=== PATIENT | female | born 1960 | race Caucasian/White ===

== ENCOUNTER 2024-02-15 09:00 | Outpatient (RCR) | payer OTHER, SELFPAY ==
[2024-02-03 10:54] VITALS: BP 147/66; PULSE 91; RESP 18; TEMP 37.3; BMI 33.3
--- NOTE | 2024-02-03 13:03 | HP.PCM_ITS ---
History of Present Illness Date of Service: 02/03/24 Chief Complaint: Follow-up right aguilar wound since October. 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 She has been treated by her family doctor who finally after 2 rounds of antibiotics and not getting anywhere decided to send her to the wound center. 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 PFSH Home Medications ?Medication ?Instructions ?Recorded ?Last Taken ?Type albuterol sulfate 90 mcg/actuation 2 inh inhalation Q4H PRN shortness 02/03/24 Unknown History aerosol inhaler of breath or wheezing calcium phosphate,dibasic 77 tab PO 02/03/24 Unknown History mg-vitamin D3 400 unit tablet fluocinolone acetonide oil 0.01 % 2 drp otic (ear) BID 02/03/24 Unknown History ear drops fluticasone fur. 100 mcg-umeclid inhalation DAILY 02/03/24 Unknown History 62.5 mcg-vilant 25 mcg inhalat.powder (Trelegy Ellipta) hydrochlorothiazide 12.5 mg tablet 12.5 mg PO DAILY 02/03/24 Unknown History magnesium 200 mg tablet 200 mg PO DAILY 02/03/24 Unknown History multivitamin (Daily Value tablet) 1 tab PO DAILY 02/03/24 Unknown History omeprazole 20 mg capsule,delayed 20 mg PO DAILY 02/03/24 Unknown History release pantoprazole 20 mg tablet,delayed 20 mg PO DAILY 02/03/24 Unknown History release Allergy/AdvReac Type Severity Reaction Status Date / Time cephalexin Allergy Mild Hives Verified 02/03/24 10:49 naproxen Allergy Mild Hives Verified 02/03/24 10:47 Penicillins Allergy Mild Itching Verified 02/03/24 10:36 loratadine (From Claritin-D) Allergy Itching Verified 02/03/24 10:47 pseudoephedrine (From Allergy Itching Verified 02/03/24 10:47 Claritin-D) Social History Smoking Status: Heavy Smoker (>10/day) ROS Constitutional Constitutional: Reports systems reviewed and no addt'l complaints, except as documented Eyes Eyes: Reports systems reviewed and no addt'l complaints, except as documented ENT HEENT: Reports systems reviewed and no addt'l complaints, except as documented Cardiovascular Cardiovascular: Reports systems reviewed and no addt'l complaints, except as documented Respiratory/Chest Respiratory/Chest: Reports systems reviewed and no addt'l complaints, except as documented Gastrointestinal Gastrointestinal: Reports systems reviewed and no addt'l complaints, except as documented Genitourinary Genitourinary: Reports systems reviewed and no addt'l complaints, except as documented Musculoskeletal Musculoskeletal: Reports systems reviewed and no addt'l complaints, except as documented Integumentary Integumentary: Reports wounds and other Details: Open wound hardened fibrin over top on the right aguilar. Neurologic Neurologic: Reports systems reviewed and no addt'l complaints, except as documented Psychiatric Psychiatric: Reports systems reviewed and no addt'l complaints, except as documented Endocrine Endocrinology: Reports systems reviewed and no addt'l complaints, except as documented Hematologic/Lymphatic Hematologic/Lymphatic: Reports systems reviewed and no addt'l complaints, except as documented Allergic/Immunologic Allergic/Immunologic: Reports systems reviewed and no addt'l complaints, except as documented Vital Signs Vital Signs Vital Signs: 02/03/24 10:54 Temperature 99.1 F Temperature Source Temporal Pulse Rate 91 Respiratory Rate 18 Blood Pressure 147/66 H Blood Pressure Mean 93 Blood Pressure Source Monitor Blood Pressure Position Semi-Fowlers Blood Pressure Location Left Arm Weight Weight: 182 lb Body Mass Index (BMI) 33.3 Physical Exam Const oriented x3 General Appearance: cooperative Exam Limitations: no limitations HEENT normocephalic Eyes General Eye: normal appearance of both eyes Neck General: normal visual inspection Resp normal respiratory effort Effort and Inspection: able to speak in complete sentences Cardio regular rate and regular rhythm Back/Spine Cervical Spine: cervical ROM normal Extremity General Extremity: normal exam except as noted, edema and other findings Other Details: Some varicosities superficial Skin Skin Narrative: Open wound right aguilar well-demarcated with no erythema except around the perimeter no tenderness to touch. About the size of a $0.50 piece with some positive depth Neuro oriented x3 Psych Appearance: grossly normal Speech: normal speech Thought Content: normal thought content Judgement: judgement good Debridement Note Debridement Note Wound debrided: Right aguilar trauma Type of Debridement: Excisional debridement Anesthesia Used: 5% Lidocaine Gel Depth: Down to and including healthy tissue and in the subcutaneous layer Percentage of wound debrided: 100 Instrument Used: 7mm curette, #15 blade and Forceps Tissue Removed: Fibrin and devitalized tissue Severity: Fat Layer Exposed Amount of bleeding with debridement: Mild Bleeding Controlled with: Compression and gauze Patient tolerated procedure: Patient tolerated procedure well Post-Debridement Measurements and Additional Note: Post-Debridement Measurements/Treatment - Nurse 1 - General Ulcer Assessment Start: 02/03/24 10:36 Freq: Status: Active Protocol: HERMINIO Activity Type Activity Date Activity User E-sign Co-sign Detail Recorded Client Recorded Date Recorded By Document 02/03/24 10:54 [id number] 02/03/24 11:05 02/03/24 10:54 - Today's Visit Information Type of service Initial Visit Arrival Mode Ambulatory Transfer Assistance None Patient Identification Verified (Name & Yes ) Height and Weight Height 5 ft 2 in Weight 182 lb Weight in Pounds 182.0 lbs Body Mass Index (BMI) 33.3 BMI Classification Obese BSA - [place] 1.84 Vital Signs Temperature (97.8 F-99.1 F) 99.1 F Temperature Source Temporal Pulse Rate (60-100) 91 Pulse Location Monitor Respiratory Rate (12-18) 18 Respiratory rate source Observation Blood Pressure (90/60-120/80) 147/66 H Blood Pressure Mean 93 Source Monitor Position Semi-Fowlers Blood Pressure Location Left Arm History Since Last Visit- (Skip if this is Patient's initial visit) Have you changed medications since your No last visit? Any new allergies or adverse reactions No Had a fall/change in ADL's that may No increase risk of falls Signs or symptoms of abuse and/or No neglect since last visit Have you been in the hospital since your No last visit? Has dressing in place as prescribed Yes Has compression in place as prescribed No Has offloadiing in place as prescribed No Experienced any changes in pain level or No management Pain Scale: 0-10 Numeric Is Patient Pain Free? No RLE -Description Burning -Intensity 8 -Duration (hours) Acute -Pain Behavior Irritability -Pain Aggravating Factors Exercise/ Activity -Alleviating Factors/Interventions None Lower Extremity Assessment/ Foot Assessment/ Toe Nail Assessment Right -Posterior Tibial Palpable Yes -Dorsalis Pedis Palpable Yes -Extremity Color Normal -Hair Growth on Legs Yes -Hair Growth on Toes No -Temperature of Extremity Warm -Capillary Refill Less than 3 Seconds -Dependent Rubor No -Blanched when Elevated No -Lipodermatosclerosis No -Other Deformity No -Prior Foot Ulcer No -Charcot Joint No -Prior Amputation No -Thick No -Discolored No -Deformed No -Improper Length & Hygeine Yes Left -Posterior Tibial Palpable Yes -Dorsalis Pedis Palpable Yes -Extremity Color Normal -Hair Growth on Legs Yes -Hair Growth on Toes No -Temperature of Extremity Warm -Capillary Refill Less than 3 Seconds -Dependent Rubor No -Blanched when Elevated No -Lipodermatosclerosis No -Other Deformity No -Prior Foot Ulcer No -Charcot Joint No -Prior Amputation No -Thick No -Discolored No -Deformed No -Improper Length & Hygeine Yes Neuropathy Assessment Feet - Top Side and Bottom <Entered> (a) Communication Assessment Preferred language Nauruan Roof Service Technician Required No Able to Read Yes Able to Write Yes Communication Tools None Caregiver Communication Skills Unable To Read Impairment Right Hearing Abillity Normal Left Hearing Abillity Normal Visual Assistive Devices Glasses Teaching Assessment Preferences Verbal,Written, Demonstration Barriers to Learning None Readiness To Learn Good Willingness to Engage in Self Management Med Activies Readiness to Engage in Self Management Med Activities Anxiety Level Calm Cooperation Cooperative Perception Coherent Interest in Health Problem Asks Questions Education Importance Acknowledges Need Does Patient Smoke tobacco or other Yes substances Smoking Status Heavy Smoker (> 10/day) Is Patient Diabetic No Functional Assessment Recent Decline in Ability to Perform Denies Any Declines Assistive Device With Patient No Culture/Church/Forestry Adviser Cultural/Church Needs that may affect No Treatment Plan Would you allow our hospital sales representative door to door to No meet you for the purpose of spiritual/ emotional support? Forestry Adviser to contact place of mormonism No Teaching: Wound Center *Welcome to the Wound Center -Person Taught Patient -Teaching Method Discussion, Demonstration -Response to teaching Verbalize Understanding (a) 1 - + THROUGHOUT WC - Nurse 1 - General Ulcer Measurement Start: 02/03/24 10:36 Freq: Status: Active Protocol: Activity Type Activity Date Activity User E-sign Co-sign Detail Recorded Client Recorded Date Recorded By Document 02/03/24 10:54 RB [id number] 02/03/24 11:05 02/03/24 10:54 Wound Center Nurse 1 1. RLE -Combined with other wound No -Current Size (cm) - Length 2.5 -Current Size (cm) - Width 3 -Current Size (cm) - Depth 0.1 -Total Square Cm 7.5 -Photo Taken Yes -Tunneling No -Undermining/Tunneling No -Circular Undermining No -Exudate Amt Medium -Exudate Type Serosanguineous -Wound Margin Distinct, Outline Attached -Granulation Amt Medium (34-66%) -Granulation Quality [place] -Slough/Fibrin Yes -Necrosis Amt Medium (34-66%) -Necrotic Tissue Type Eschar -Structure Exposed N/A -Texture (Dot-wound Skin Appearance) Assessed -Moisture (Dot-wound Skin Appearance) Assessed -Color (Dot-wound Skin Appearance) Assessed -Temperature (Dot-wound Skin No Abnormality Appearance) (Pt Warm) -Tenderness on Palpation (Dot-wound No Skin Appearance) -Ulcer Cleansing Wound Cleanser -Foul Odor after Cleansing No -Anesthetic Used 5% Lidocaine Gel Lower Limb Edema Present Yes Right Calf (cm) 45.5 Right Ankle (cm) 25.5 Left Calf (cm) 40 Left Ankle (cm) 23.8 - Nurse 2 - General Ulcer CM Notes Start: 02/03/24 10:36 Freq: Status: Active Protocol: Activity Type Activity Date Activity User E-sign Co-sign Detail Recorded Client Recorded Date Recorded By Document 02/03/24 11:21 [facility] [id number] 02/03/24 11:35 [facility] 02/03/24 11:21 Wound Center Nurse 2 1. RLE -Time 11:23 -Correct Patient Yes -Correct Side, Site, Position Yes -Correct Procedure Yes -Procedure Performed Yes -Type of Procedure Debridement -Clinical Debridement Subcutaneous -Tissue Removed Subcutaneous -Post Debridement (cm) - Length 2.5 -Post Debridement (cm) - Width 3 -Post Debridement (cm) - Depth 0.3 -Total Square (Post) (cm) 7.5 -Area of Debridement (cm) - Length 2.5 -Area of Debridement (cm) - Width 3 -Total Square (Area) (cm) 7.5 -Tunneling No -Undermining/Tunneling No -Circular Undermining No -Wound/Ulcer Outcome Not Healed -Ulcer Cleansing Rinsed/ Irrigated with Saline -Foul Odor after Cleansing No -Bioengineered Tissue No -Bleeding Controlled with Pressure -Treatment Response Procedure Tolerated Well -Debridement - Subq, 1st 20sq cm Yes Pain Scale: 0-10 Numeric Is Patient Pain Free? Yes - Nurse 3 - General Ulcer D/C NN Start: 02/03/24 10:36 Freq: Status: Active Protocol: Activity Type Activity Date Activity User E-sign Co-sign Detail Recorded Client Recorded Date Recorded By Document 02/03/24 11:57 DL [id number] 02/03/24 11:59 DL 02/03/24 11:57 Wound Care Center Nurse 3 1. RLE -Ulcer Cleansing Rinsed/ Irrigated with Saline -Foul Odor after Cleansing No -Other Dressing HYDROGEL -Primary Dressing Covered/Secured with Dry Gauze & Roll Gauze, Secured with Tape -Wound Comment(s) Pt to start Santyl when available at home Treatment Response Procedure Tolerated Well Pain Scale: 0-10 Numeric Is Patient Pain Free? Yes WC - Visit Discharge Discharge Condition Stable Ambulatory Status Ambulatory Transportation Private Auto Assessment/Plan Assessment/Plan (1) Nonhealing nonsurgical wound: CODE(S): T14.8XXA - Other injury of unspecified body region, initial encounter PLAN: Wash right leg with antibacterial soap and water apply Santyl nickel thickness to the wound base cover with Adaptic and gauze with tape every day Follow-up in 1 week Double layer Tubigrip to right lower leg Patient will get a vascular studies vein and arterial wound protocol Cultures will be called and results will be sent to patient. (2) Traumatic open wound of right lower leg: CODE(S): S81.801A - Unspecified open wound, right lower leg, initial encounter QUALIFIERS: Encounter type: initial encounter Qualified Code(s): S81.801A - Unspecified open wound, right lower leg, initial encounter (3) Dakota-Danlos syndrome: CODE(S): Q79.60 - Dakota-Danlos syndrome, unspecified
--- NOTE | 2024-02-04 08:52 | WC ---
PHOTO 02/03/24 [email or web address]
[2024-02-10 11:00] VITALS: BP 155/81; PULSE 91; RESP 18; TEMP 36.1; BMI 33.3
--- NOTE | 2024-02-10 12:52 | PN.PCM_ITS ---
History of Present Illness Date of Service: 02/10/24 Chief Complaint: Follow-up right aguilar wound since October. 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 She has been treated by her family doctor who finally after 2 rounds of antibiotics and not getting anywhere decided to send her to the wound center. 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 Progress of Wound: right right aguilar open wound looks much better with the Santyl cleaned it all out there is no debridement of slough have to be really done I am taking off some fibrin and around the edging it is well-demarcated she is already getting new skin across and she is got beads of new skin erupting. Subjective Subjective Patient is very happy with the outcome Objective Data Objective Data Measurements are not that much smaller but the depth is much better Vital Signs: Vital Signs Temp Pulse Resp BP 97 F L 91 18 155/81 H 02/10/24 11:00 02/10/24 11:00 02/10/24 11:00 02/10/24 11:00 Weight: 182 lb Body Mass Index (BMI) 33.3 Lab / Micro Data Attestation: I reviewed the patient's lab results. Micro: Microbiology 02/03/24 11:25 Wound - Leg, Right Gram Stain - Final 02/03/24 11:25 Wound - Leg, Right Wound Culture - Final No growth aerobically. 02/03/24 11:25 Wound - Leg, Right Anaerobic Culture - Final Clostridium group Physical Exam Const oriented x3 General Appearance: cooperative Exam Limitations: no limitations HEENT normocephalic Eyes General Eye: normal appearance of both eyes Neck General: normal visual inspection Resp normal respiratory effort Effort and Inspection: able to speak in complete sentences Cardio regular rate and regular rhythm Back/Spine Cervical Spine: cervical ROM normal Extremity General Extremity: normal exam except as noted, edema and other findings Other Details: Some varicosities superficial Skin Skin Narrative: Open wound right aguilar well-demarcated with no erythema except around the perimeter no tenderness to touch. About the size of a $0.50 piece with some positive depth Neuro oriented x3 Psych Appearance: grossly normal Speech: normal speech Thought Content: normal thought content Judgement: judgement good Debridement Note Debridement Note Wound debrided: Right aguilar trauma Type of Debridement: Excisional debridement Anesthesia Used: 5% Lidocaine Gel Depth: Down to and including healthy tissue and in the subcutaneous layer Percentage of wound debrided: 100 Instrument Used: 7mm curette, #15 blade and Forceps Tissue Removed: Fibrin and devitalized tissue Severity: Fat Layer Exposed Amount of bleeding with debridement: Mild Bleeding Controlled with: Compression and gauze Patient tolerated procedure: Patient tolerated procedure well Post-Debridement Measurements and Additional Note: Post-Debridement Measurements/Treatment WC - Nurse 1 - General Ulcer Assessment Start: 02/03/24 10:36 Freq: Status: Active Protocol: HERMINIO Activity Type Activity Date Activity User E-sign Co-sign Detail Recorded Client Recorded Date Recorded By Document 02/03/24 10:54 RB [id number] 02/03/24 11:05 RB Document 02/10/24 11:00 DL [id number] 02/10/24 11:03 DL 02/03/24 02/10/24 10:54 11:00 - Today's Visit Information Type of service Initial Visit Follow-up Visit (Physician/MORTGAGE ASSISTANT ) Arrival Mode Ambulatory Ambulatory Transfer Assistance None None Patient Identification Verified (Name & Yes Yes ) Patient Requires Transmission-Based No Precautions Height and Weight Height 5 ft 2 in Weight 182 lb Weight in Pounds 182.0 lbs Body Mass Index (BMI) 33.3 33.3 BMI Classification Obese Obese BSA - Gricelda 1.84 Vital Signs Temperature (97.8 F-99.1 F) 99.1 F 97 F L Temperature Source Temporal Temporal Pulse Rate (60-100) 91 91 Pulse Location Monitor Monitor Respiratory Rate (12-18) 18 18 Respiratory rate source Observation Observation Blood Pressure (90/60-120/80) 147/66 H 155/81 H Blood Pressure Mean (mm Hg) 93 105 Source Monitor Monitor Position Semi-Fowlers Blood Pressure Location Left Arm History Since Last Visit- (Skip if this is Patient's initial visit) Have you changed medications since your No No last visit? Any new allergies or adverse reactions No No Had a fall/change in ADL's that may No No increase risk of falls Signs or symptoms of abuse and/or No No neglect since last visit Have you been in the hospital since your No No last visit? Has dressing in place as prescribed Yes Yes Has compression in place as prescribed No Yes Has offloadiing in place as prescribed No N/A Experienced any changes in pain level or No No management Pain Scale: 0-10 Numeric Is Patient Pain Free? No Yes RLE -Description Burning -Intensity 8 -Duration (hours) Acute -Pain Behavior Irritability -Pain Aggravating Factors Exercise/ Activity -Alleviating Factors/Interventions None Lower Extremity Assessment/ Foot Assessment/ Toe Nail Assessment Right -Posterior Tibial Palpable Yes -Dorsalis Pedis Palpable Yes -Extremity Color Normal -Hair Growth on Legs Yes -Hair Growth on Toes No -Temperature of Extremity Warm -Capillary Refill Less than 3 Seconds -Dependent Rubor No -Blanched when Elevated No -Lipodermatosclerosis No -Other Deformity No -Prior Foot Ulcer No -Charcot Joint No -Prior Amputation No -Thick No -Discolored No -Deformed No -Improper Length & Hygeine Yes Left -Posterior Tibial Palpable Yes -Dorsalis Pedis Palpable Yes -Extremity Color Normal -Hair Growth on Legs Yes -Hair Growth on Toes No -Temperature of Extremity Warm -Capillary Refill Less than 3 Seconds -Dependent Rubor No -Blanched when Elevated No -Lipodermatosclerosis No -Other Deformity No -Prior Foot Ulcer No -Charcot Joint No -Prior Amputation No -Thick No -Discolored No -Deformed No -Improper Length & Hygeine Yes Neuropathy Assessment Feet - Top Side and Bottom <Entered> (a) Communication Assessment Preferred language Irish Book Cutter Required No Able to Read Yes Able to Write Yes Communication Tools None Caregiver Communication Skills Unable To Read Impairment Right Hearing Abillity Normal Left Hearing Abillity Normal Visual Assistive Devices Glasses Teaching Assessment Preferences Verbal,Written, Demonstration Barriers to Learning None Readiness To Learn Good Willingness to Engage in Self Management Med Activies Readiness to Engage in Self Management Med Activities Anxiety Level Calm Cooperation Cooperative Perception Coherent Interest in Health Problem Asks Questions Education Importance Acknowledges Need Does Patient Smoke tobacco or other Yes substances Smoking Status Heavy Smoker (> 10/day) Is Patient Diabetic No Functional Assessment Recent Decline in Ability to Perform Denies Any Declines Assistive Device With Patient No Culture/Scientologist/Petroleum Supply Specialist Cultural/Scientologist Needs that may affect No Treatment Plan Would you allow our hospital guidance secretary to No meet you for the purpose of spiritual/ emotional support? Petroleum Supply Specialist to contact place of scientologist No Teaching: Wound Center *Welcome to the Wound Center -Person Taught Patient -Teaching Method Discussion, Demonstration -Response to teaching Verbalize Understanding (a) 1 - + THROUGHOUT WC - Nurse 1 - General Ulcer Measurement Start: 02/03/24 10:36 Freq: Status: Active Protocol: Activity Type Activity Date Activity User E-sign Co-sign Detail Recorded Client Recorded Date Recorded By Document 02/03/24 10:54 RB [id number] 02/03/24 11:05 RB Document 02/10/24 11:00 DL [id number] 02/10/24 11:03 DL 02/03/24 02/10/24 10:54 11:00 Wound Center Nurse 1 1. RLE -Combined with other wound No -Current Size (cm) - Length 2.5 3.2 -Current Size (cm) - Width 3 3.8 -Current Size (cm) - Depth 0.1 0.1 -Total Square Cm 7.5 12.16 -Photo Taken Yes -Tunneling No -Undermining/Tunneling No -Circular Undermining No -Exudate Amt Medium Medium -Exudate Type Serosanguineous Serosanguineous -Wound Margin Distinct, Distinct, Outline Outline Attached Attached -Granulation Amt Medium (34-66%) Medium (34-66%) -Granulation Quality [place] Red -Slough/Fibrin Yes -Necrosis Amt Medium (34-66%) None Present (0 %) -Necrotic Tissue Type Eschar Adherent Slough -Structure Exposed N/A N/A -Texture (Dot-wound Skin Appearance) Assessed Localized Edema ,Scarring -Moisture (Dot-wound Skin Appearance) Assessed No Abnormality -Color (Dot-wound Skin Appearance) Assessed Hemosiderin Staining -Temperature (Dot-wound Skin No Abnormality No Abnormality Appearance) (Pt Warm) (Pt Warm) -Tenderness on Palpation (Dot-wound No Skin Appearance) -Ulcer Cleansing Wound Cleanser Soap and Water -Foul Odor after Cleansing No No -Anesthetic Used 5% Lidocaine 5% Lidocaine Gel Gel Lower Limb Edema Present Yes Right Calf (cm) 45.5 Right Ankle (cm) 25.5 Left Calf (cm) 40 40.5 Left Ankle (cm) 23.8 24.5 WC - Nurse 2 - General Ulcer CM Notes Start: 02/03/24 10:36 Freq: Status: Active Protocol: Activity Type Activity Date Activity User E-sign Co-sign Detail Recorded Client Recorded Date Recorded By Document 02/03/24 11:21 BM [id number] 02/03/24 11:35 BM Document 02/10/24 11:10 BM [id number] 02/10/24 11:15 BMF 02/03/24 02/10/24 11:21 11:10 Wound Center Nurse 2 1. RLE -Time 11:23 11:10 -Correct Patient Yes Yes -Correct Side, Site, Position Yes Yes -Correct Procedure Yes Yes -Procedure Performed Yes Yes -Type of Procedure Debridement Debridement -Clinical Debridement Subcutaneous Subcutaneous -Tissue Removed Subcutaneous Subcutaneous -Post Debridement (cm) - Length 2.5 2.3 -Post Debridement (cm) - Width 3 3.1 -Post Debridement (cm) - Depth 0.3 0.2 -Total Square (Post) (cm) 7.5 7.13 -Area of Debridement (cm) - Length 2.5 2.3 -Area of Debridement (cm) - Width 3 3.1 -Total Square (Area) (cm) 7.5 7.13 -Tunneling No No -Undermining/Tunneling No No -Circular Undermining No No -Wound/Ulcer Outcome Not Healed Not Healed -Ulcer Cleansing Rinsed/ Rinsed/ Irrigated with Irrigated with Saline Saline -Foul Odor after Cleansing No No -Bioengineered Tissue No No -Bleeding Controlled with Pressure Pressure -Treatment Response Procedure Procedure Tolerated Well Tolerated Well -Debridement - Subq, 1st 20sq cm Yes Yes Pain Scale: 0-10 Numeric Is Patient Pain Free? Yes Yes WC - Nurse 3 - General Ulcer D/C NN Start: 02/03/24 10:36 Freq: Status: Active Protocol: Activity Type Activity Date Activity User E-sign Co-sign Detail Recorded Client Recorded Date Recorded By Document 02/03/24 11:57 DL [id number] 02/03/24 11:59 DL Document 02/10/24 11:31 DL [id number] 02/10/24 11:33 DL 02/03/24 02/10/24 11:57 11:31 Wound Care Center Nurse 3 1. RLE -Ulcer Cleansing Rinsed/ Rinsed/ Irrigated with Irrigated with Saline Saline -Foul Odor after Cleansing No No -Primary Dressing Applied Fibracol Plus 4x4,NonAdherent Contact Layer -Other Dressing HYDROGEL -Primary Dressing Covered/Secured with Dry Gauze & Dry Gauze & Roll Gauze, Roll Gauze, Secured with Secured with Tape Tape -Fibracol Plus 4x4 1 -Wound Comment(s) Pt to start Santyl when available at home Left -Tubular Bandage Double Layer -Size of Tubigrip Used Size E -Size E ($) 2 Treatment Response Procedure Procedure Tolerated Well Tolerated Well Pain Scale: 0-10 Numeric Is Patient Pain Free? Yes Yes WC - Visit Discharge Discharge Condition Stable Stable Ambulatory Status Ambulatory Ambulatory Transportation Private Auto Private Auto Assessment/Plan Assessment/Plan (1) Nonhealing nonsurgical wound: CODE(S): T14.8XXA - Other injury of unspecified body region, initial encounter PLAN: Wash right leg with antibacterial soap and apply fibber call moistened with Adaptic over top and an absorbent dressing over top with her compression stockings every day Follow-up in 3 week Double layer Tubigrip to right lower leg Patient will get a vascular studies vein and arterial wound protocol scheduled for February 17 Cultures will be called and results will be sent to patient. Cultures were rare and patient will not be treated (2) Traumatic open wound of right lower leg: CODE(S): S81.801A - Unspecified open wound, right lower leg, initial encounter QUALIFIERS: Encounter type: initial encounter Qualified Code(s): S81.801A - Unspecified open wound, right lower leg, initial encounter (3) Dakota-Danlos syndrome: CODE(S): Q79.60 - Dakota-Danlos syndrome, unspecified
--- NOTE | 2024-02-11 08:22 | WC ---
BLANQUITA REVIEWED FINAL WOUND CULTURE. N.O. TO START METRONIDAZOLE. CALLED AND UPDATED PT. ALLERGIES REVIEWED. PT AGREEABLE.
--- NOTE | 2024-02-15 08:37 | ART_ITS ---
Reason For Study: Edema, Ulcer Procedure A bilateral lower extremity continuous wave Doppler with analog waveform analysis,segmental pressures,and ankle brachial indexes without exercise. Left Segmental Pressures Left brachial= 140mmHg. Left posterior tibial artery = 144mmHg. Left dorsalis pedis artery = 147mmHg. Left digit = 91 mmHg. Right Segmental Pressures Right brachial= 133mmHg. Right posterior tibial artery = 163mmHg. Right dorsalis pedis artery = 130mmHg. Right digit = 82 mmHg. Indices The right ankle brachial index by the posterior tibial artery is 1.16. The right ankle brachial index by the dorsalis pedis is 0.93. The right digital-brachial index is 0.59. The left ankle brachial index by the posterior tibial artery is 1.03. The left ankle brachial index by the dorsalis pedis is 1.05. The left digital-brachial index is 0.65. VL/Lower Ext Art Exam w/o Exercis Interpretation Summary Triphasic Doppler waveforms are noted at ankle level bilaterally. Pulse-volume recordings appear diminished at digital level on the left, but satisfactory at all other levels b ilaterally. Resting ankle-brachial indices are normal bilaterally. Digital-brachial indices are mil dly diminished bilaterally. Arterial flow appears normal at ankle level bilaterally. There is evidence of m ild arterial occlusive disease at digital level bilaterally. Ordering Physician: Lesley Calderon Referring Physician: Liam Ambriz Performed By: Ella Calvin RDCS/RVT
--- NOTE | 2024-02-15 08:37 | VDLE_ITS ---
Reason For Study: Edema RIGHT LEFT GSV is normal. GSV is normal. CFV is compressible, spontaneous, phasic, CFV is compressible, spontaneous, phasic, competent and demonstrates normal competent, and demonstrates normal augmentation. augmentation. FV is compressible, spontaneous, phasic, FV is compressible, spontaneous, phasic, competent and demonstrates normal competent and demonstrates normal augmentation. augmentation. POP V is compressible, spontaneous, phasic, POP V is compressible, spontaneous, phasic, competent and demonstrates normal competent and demonstrates normal augmentation. augmentation. T/P Trunk is compressible. T/P Trunk is compressible. PTV is compressible. PTV is compressible. RT PerV is compressible. LT PerV is compressible. SFJ is competent and measures 0.56cm x 0.55 SFJ is competent and measures 0.48cm x 0.47 cm. cm. GSV proximal thigh measures 0.39cm x 0.41 cm. GSV proximal thigh measures 0.36cm x 0.40 cm. GSV at knee measures 0.28cm x 0.27 cm. GSV at knee measures 0.15cm x 0.15 cm. GSV is competent throughout. GSV is competent throughout. SSV mid calf is competent and measures 0.15cm SSV mid calf is competent and measures 0.12cm x 0.16 cm. x 0.14 cm. Procedure Hypoechoic, non vascular structure noted Lt This is a venous duplex using B-mode, color Pop Fossa measuring 5.90cm x 2.10cm. flow and spectral Doppler. Exam performed in department. A preliminary report was called and/or faxed to . VL/Venous Duplex US - Joseph Extrem Interpretation Summary Deep veins of the lower extremities are bilaterally patent and compressible seg mentally. There is no evidence of deep vein thrombosis on either side. Valvular competence appears in tact within the proximal deep venous systems bilaterally. The great saphenous veins appear bila terally patent and compressible segmentally. Sapheno-femoral junctions are bilaterally competent . Valvular competence appears to be intact segmentally within the great saphenous veins bilaterally. Small saphenous veins are patent and competent bilaterally. A non-vascular, hypoechoic structure is n oted in the left popliteal space, measuring 5.90 cm x 2.10 cm. This probably represents a poplit eal cyst. Clinical correlation is advised. Ordering Physician: Lesley Calderon Referring Physician: Liam Ambriz Performed By: Ella Calvin, TROY, RVT
== END 2024-03-23 13:19 | disposition home or self-care (01) ==
LOC: WC 09:00
PROVIDERS: PCP Family Medicine; Referring Provider Family Medicine; Visit Provider Nurse Practitioner
DX: S81.801A Unspecified open wound, right lower leg, initial encounter (principal); S80.11XS Contusion of right lower leg, sequela; W20.8XXS Other cause of strike by thrown, projected or falling object, sequela; R60.9 Edema, unspecified; Q79.60 Ehlers-Danlos syndrome, unspecified; F17.210 Nicotine dependence, cigarettes, uncomplicated; Z79.51 Long term (current) use of inhaled steroids; Z79.899 Other long term (current) drug therapy
CPT/HCPCS: 11042; 87070; 87075; 87077; 87205; 93923; 93970; 99203; G0463

== ENCOUNTER 2024-03-16 10:15 | Outpatient (RCR) | payer OTHER, SELFPAY ==
[2024-03-02 10:33] VITALS: BP 143/78; PULSE 103; RESP 18; TEMP 36.7
--- NOTE | 2024-03-02 12:53 | PCM.WC.PN ---
History of Present Illness Date of Service: 03/02/24 Chief Complaint: Follow-up right aguilar wound since October. 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 She has been treated by her family doctor who finally after 2 rounds of antibiotics and not getting anywhere decided to send her to the wound center. 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 Progress of Wound: The wound is finally smaller and she starting to get new skin over top. We have not seen her since February 09. She is doing well with using the Fibracol and Adaptic keeping it clean and dry. She finished her antibiotics about a week ago for the infection that she had there is no redness swelling or pain noted and she is got lots of new skin developing. Subjective Subjective Patient is very happy with outcomes Objective Data Objective Data We also went over her vascular studies which show that she had no and competencies in her veins which is good and that it is not a peripheral vascular disease problem. We will continue using the fibber call since she is responding well with Adaptic and gauze over top Vital Signs: Vital Signs Temp Pulse Resp BP 98.0 F 103 H 18 143/78 H 03/02/24 10:33 03/02/24 10:33 03/02/24 10:33 03/02/24 10:33 Lab / Micro Data Lab results narrative: Patient has no labs at this hospital but sees her own family doctor that follows up with her Physical Exam Const oriented x3 General Appearance: cooperative Exam Limitations: no limitations HEENT normocephalic Eyes General Eye: normal appearance of both eyes Neck General: normal visual inspection Resp normal respiratory effort Effort and Inspection: able to speak in complete sentences Cardio regular rate and regular rhythm Back/Spine Cervical Spine: cervical ROM normal Extremity General Extremity: normal exam except as noted, edema and other findings Other Details: Some varicosities superficial Skin Skin Narrative: Open wound right aguilar well-demarcated with no erythema except around the perimeter no tenderness to touch. About the size of a $0.50 piece with some positive depth Neuro oriented x3 Psych Appearance: grossly normal Speech: normal speech Thought Content: normal thought content Judgement: judgement good Debridement Note Debridement Note Wound debrided: Right aguilar trauma Type of Debridement: Excisional debridement Anesthesia Used: 5% Lidocaine Gel Depth: Down to and including healthy tissue and in the subcutaneous layer Percentage of wound debrided: 100 Instrument Used: 7mm curette, #15 blade and Forceps Tissue Removed: Fibrin and devitalized tissue Severity: Fat Layer Exposed Amount of bleeding with debridement: Mild Bleeding Controlled with: Compression and gauze Patient tolerated procedure: Patient tolerated procedure well Post-Debridement Measurements and Additional Note: Post-Debridement Measurements/Treatment WHIT - Nurse 1 - General Ulcer Assessment Start: 03/02/24 10:33 Freq: Status: Active Protocol: HERMINIO Activity Type Activity Date Activity User E-sign Co-sign Detail Recorded Client Recorded Date Recorded By Document 03/02/24 10:33 PA [id number] 03/02/24 10:43 PA 03/02/24 10:33 - Today's Visit Information Type of service Follow-up Visit (Physician/FUR LINER ) Arrival Mode Ambulatory Accompanied by Patient Identification Verified (Name & Yes ) Safety Precautions Fall Prevention Vital Signs Temperature (97.8 F-99.1 F) 98.0 F Temperature Source Temporal Pulse Rate (60-100) 103 H Pulse Location Monitor Respiratory Rate (12-18) 18 Respiratory rate source Observation Blood Pressure (90/60-120/80) 143/78 H Blood Pressure Mean (mm Hg) 99 Source Monitor Position Sitting Blood Pressure Location Right Forearm History Since Last Visit- (Skip if this is Patient's initial visit) Has dressing in place as prescribed Yes Has compression in place as prescribed Yes Has offloadiing in place as prescribed Yes Experienced any changes in pain level or Yes management Left Footwear Regular Shoe Right Footwear Regular Shoe Pain Scale: 0-10 Numeric Is Patient Pain Free? Yes - Nurse 1 - General Ulcer Measurement Start: 03/02/24 10:33 Freq: Status: Active Protocol: Activity Type Activity Date Activity User E-sign Co-sign Detail Recorded Client Recorded Date Recorded By Document 03/02/24 10:33 PA [id number] 03/02/24 10:43 PA 03/02/24 10:33 Wound Center Nurse 1 1. RLE -Current Size (cm) - Length 1.7 -Current Size (cm) - Width 1.3 -Current Size (cm) - Depth 0.1 -Total Square Cm 2.21 -Photo Taken No -Tunneling No -Undermining/Tunneling No -Circular Undermining No -Exudate Amt Small -Exudate Type Serosanguineous -Wound Margin Flat & Intact -Granulation Amt Medium (34-66%) -Granulation Quality Pale,[place] -Necrosis Amt Medium (34-66%) -Necrotic Tissue Type Adherent Slough -Texture (Dot-wound Skin Appearance) Assessed, Localized Edema -Moisture (Dot-wound Skin Appearance) Assessed, Maceration -Color (Dot-wound Skin Appearance) Assessed -Temperature (Odt-wound Skin No Abnormality Appearance) (Pt Warm) -Tenderness on Palpation (Dot-wound No Skin Appearance) -Ulcer Cleansing Rinsed/ Irrigated with Saline -Foul Odor after Cleansing No -Anesthetic Used 5% Lidocaine Gel Right Calf (cm) 35 Right Ankle (cm) 24 WC - Nurse 2 - General Ulcer CM Notes Start: 03/02/24 10:33 Freq: Status: Active Protocol: Activity Type Activity Date Activity User E-sign Co-sign Detail Recorded Client Recorded Date Recorded By Document 03/02/24 10:48 [facility] [id number] 03/02/24 10:53 [facility] 03/02/24 10:48 Wound Center Nurse 2 1. RLE -Time 10:49 -Correct Patient Yes -Correct Side, Site, Position Yes -Correct Procedure Yes -Procedure Performed Yes -Type of Procedure Debridement -Clinical Debridement Subcutaneous -Tissue Removed Subcutaneous -Post Debridement (cm) - Length 1.8 -Post Debridement (cm) - Width 1.5 -Post Debridement (cm) - Depth 0.2 -Total Square (Post) (cm) 2.70 -Area of Debridement (cm) - Length 1.8 -Area of Debridement (cm) - Width 1.5 -Total Square (Area) (cm) 2.70 -Tunneling No -Undermining/Tunneling No -Circular Undermining No -Wound/Ulcer Outcome Not Healed -Ulcer Cleansing Rinsed/ Irrigated with Saline -Foul Odor after Cleansing No -Bioengineered Tissue No -Bleeding Controlled with Pressure -Treatment Response Procedure Tolerated Well -Debridement - Subq, 1st 20sq cm Yes Pain Scale: 0-10 Numeric Is Patient Pain Free? Yes - Nurse 3 - General Ulcer D/C NN Start: 03/02/24 10:33 Freq: Status: Active Protocol: Activity Type Activity Date Activity User E-sign Co-sign Detail Recorded Client Recorded Date Recorded By Document 03/02/24 11:04 PA [id number] 03/02/24 11:06 PA Document 03/02/24 11:11 [facility] [id number] 03/02/24 11:12 [facility] 03/02/24 03/02/24 11:04 11:11 Wound Care Center Nurse 3 1. RLE -Ulcer Cleansing Soap and Water Rinsed/ Irrigated with Saline -Foul Odor after Cleansing No No -Negative Pressure Wound Therapy N/A -Primary Dressing Applied Melgisorb AG Fibracol Plus 4x4,NonAdherent Contact Layer -Other Dressing ABD x 2 -Primary Dressing Covered/Secured with Dry Gauze,Dry Dry Gauze & Gauze & Roll Roll Gauze, Gauze,Secured Secured with with Tape Tape -Fibracol Plus 4x4 1 -Melgisorb AG 2 Left -Compression Wrap Constantine Wrap -Tubular Bandage Double Layer -Size of Tubigrip Used Size E -Size E ($) 2 Treatment Response Procedure Tolerated Well Pain Scale: 0-10 Numeric Is Patient Pain Free? Yes Yes - Visit Discharge Discharge Condition Stable Stable Ambulatory Status Ambulatory Ambulatory Transportation Private Auto Private Auto Accompanied by Medication Reconcilliation completed & No provided to patient/care provider Clinical Summary of Care Provided Yes Notes: supra-absorb x 2, 2 abd, kerlix, constantine x 2 Assessment/Plan Assessment/Plan (1) Nonhealing nonsurgical wound: CODE(S): T14.8XXA - Other injury of unspecified body region, initial encounter PLAN: Wash right leg with antibacterial soap and apply fibrocal moistened with Adaptic over top and an absorbent dressing over top with her compression stockings every day Follow-up in 1week Double layer Tubigrip to right lower leg Discussed vascular studies with patient. They did find a popliteal cyst on her left posterior knee Patient was cultures has finished her antibiotic therapy and is doing well (2) Traumatic open wound of right lower leg: CODE(S): S81.801A - Unspecified open wound, right lower leg, initial encounter QUALIFIERS: Encounter type: subsequent encounter Qualified Code(s): S81.801D - Unspecified open wound, right lower leg, subsequent encounter (3) Dakota-Danlos syndrome: CODE(S): Q79.60 - Dakota-Danlos syndrome, unspecified (4) Ulcer of right lower extremity: CODE(S): L97.919 - Non-pressure chronic ulcer of unspecified part of right lower leg with unspecified severity QUALIFIERS: Non-pressure ulcer stage: with fat layer exposed Qualified Code(s): L97.912 - Non-pressure chronic ulcer of unspecified part of right lower leg with fat layer exposed
[2024-03-09 10:09] VITALS: BP 148/79; PULSE 99; RESP 18; TEMP 36.3
--- NOTE | 2024-03-09 10:24 | PCM.WC.PN ---
History of Present Illness Date of Service: 03/09/24 Chief Complaint: Follow-up right aguilar wound since October. 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 She has been treated by her family doctor who finally after 2 rounds of antibiotics and not getting anywhere decided to send her to the wound center. 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 Progress of Wound: The wound is smaller and she starting to get new skin over top. It is down to the size of a dime from a $0.50 piece. She is doing well with using the Fibracol and Adaptic keeping it clean and dry. She finished her antibiotics about a week ago for the infection that she had there is no redness swelling or pain noted and she is got lots of new skin developing. Subjective Subjective Patient is happy with outcomes and is agreeable with plan Objective Data Objective Data Healing is a well new skin buds and new skin is about half the size it was originally Vital Signs: Vital Signs Temp Pulse Resp BP 97.3 F L 99 18 148/79 H 03/09/24 10:09 03/09/24 10:09 03/09/24 10:09 03/09/24 10:09 Patient is eating a balanced diet Lab / Micro Data Labs: Patient has no labs in our system at this time Physical Exam Const oriented x3 General Appearance: cooperative Exam Limitations: no limitations HEENT normocephalic Eyes General Eye: normal appearance of both eyes Neck General: normal visual inspection Resp normal respiratory effort Effort and Inspection: able to speak in complete sentences Cardio regular rate and regular rhythm Back/Spine Cervical Spine: cervical ROM normal Extremity General Extremity: normal exam except as noted, edema and other findings Other Details: Some varicosities superficial Skin Skin Narrative: Open wound right aguilar well-demarcated with no erythema except around the perimeter no tenderness to touch. About the size of a $0.50 piece with some positive depth Neuro oriented x3 Psych Appearance: grossly normal Speech: normal speech Thought Content: normal thought content Judgement: judgement good Debridement Note Debridement Note Wound debrided: Right aguilar trauma Type of Debridement: Excisional debridement Anesthesia Used: 5% Lidocaine Gel Depth: Down to and including healthy tissue and in the subcutaneous layer Percentage of wound debrided: 100 Instrument Used: 7mm curette, #15 blade and Forceps Tissue Removed: Fibrin and devitalized tissue Severity: Fat Layer Exposed Amount of bleeding with debridement: Mild Bleeding Controlled with: Compression and gauze Patient tolerated procedure: Patient tolerated procedure well Post-Debridement Measurements and Additional Note: Post-Debridement Measurements/Treatment - Nurse 1 - General Ulcer Assessment Start: 03/02/24 10:33 Freq: Status: Active Protocol: WHIT.LOWNUVIAT Activity Type Activity Date Activity User E-sign Co-sign Detail Recorded Client Recorded Date Recorded By Document 03/02/24 10:33 [place] [id number] 03/02/24 10:43 [place] Document 03/09/24 10:09 RB [id number] 03/09/24 10:12 RB 03/02/24 03/09/24 10:33 10:09 - Today's Visit Information Type of service Follow-up Visit Follow-up Visit (Physician/COMMUNICATION EQUIPMENT MECHANIC (Physician/COMMUNICATION EQUIPMENT MECHANIC ) ) Arrival Mode Ambulatory Ambulatory Transfer Assistance None Accompanied by Patient Identification Verified (Name & Yes Yes ) Patient Requires Transmission-Based No Precautions Safety Precautions Fall Prevention Vital Signs Temperature (97.8 F-99.1 F) 98.0 F 97.3 F L Temperature Source Temporal Temporal Pulse Rate (60-100) 103 H 99 Pulse Location Monitor Monitor Respiratory Rate (12-18) 18 18 Respiratory rate source Observation Observation Blood Pressure (90/60-120/80) 143/78 H 148/79 H Blood Pressure Mean (mm Hg) 99 102 Source Monitor Monitor Position Sitting Semi-Fowlers Blood Pressure Location Right Forearm Left Arm History Since Last Visit- (Skip if this is Patient's initial visit) Have you changed medications since your No last visit? Any new allergies or adverse reactions No Had a fall/change in ADL's that may No increase risk of falls Signs or symptoms of abuse and/or No neglect since last visit Have you been in the hospital since your No last visit? Has dressing in place as prescribed Yes Yes Has compression in place as prescribed Yes Yes Has offloadiing in place as prescribed Yes N/A Experienced any changes in pain level or Yes No management Left Footwear Regular Shoe Right Footwear Regular Shoe Pain Scale: 0-10 Numeric Is Patient Pain Free? Yes Yes - Nurse 1 - General Ulcer Measurement Start: 03/02/24 10:33 Freq: Status: Active Protocol: Activity Type Activity Date Activity User E-sign Co-sign Detail Recorded Client Recorded Date Recorded By Document 03/02/24 10:33 MT [id number] 03/02/24 10:43 MT Document 03/09/24 10:09 RB [id number] 03/09/24 10:12 RB 03/02/24 03/09/24 10:33 10:09 Wound Center Nurse 1 1. RLE -Combined with other wound No -Current Size (cm) - Length 1.7 1.5 -Current Size (cm) - Width 1.3 1 -Current Size (cm) - Depth 0.1 0.1 -Total Square Cm 2.21 1.5 -Photo Taken No Yes -Tunneling No No -Undermining/Tunneling No No -Circular Undermining No No -Exudate Amt Small Medium -Exudate Type Serosanguineous Serosanguineous -Wound Margin Flat & Intact Distinct, Outline Attached -Granulation Amt Medium (34-66%) Medium (34-66%) -Granulation Quality Pale,[place],Red -Slough/Fibrin Yes -Necrosis Amt Medium (34-66%) Medium (34-66%) -Necrotic Tissue Type Adherent Slough Adherent Slough -Structure Exposed N/A -Texture (Dot-wound Skin Appearance) Assessed, Assessed Localized Edema -Moisture (Dot-wound Skin Appearance) Assessed, Assessed Maceration -Color (Dot-wound Skin Appearance) Assessed Assessed -Temperature (Dot-wound Skin No Abnormality No Abnormality Appearance) (Pt Warm) (Pt Warm) -Tenderness on Palpation (Dot-wound No No Skin Appearance) -Ulcer Cleansing Rinsed/ Wound Cleanser Irrigated with Saline -Foul Odor after Cleansing No No -Anesthetic Used 5% Lidocaine 5% Lidocaine Gel Gel Lower Limb Edema Present Yes Right Calf (cm) 35 38.5 Right Ankle (cm) 24 23.3 - Nurse 2 - General Ulcer CM Notes Start: 03/02/24 10:33 Freq: Status: Active Protocol: Activity Type Activity Date Activity User E-sign Co-sign Detail Recorded Client Recorded Date Recorded By Document 03/02/24 10:48 [facility] [id number] 03/02/24 10:53 [facility] Document 03/09/24 10:16 [facility] [id number] 03/09/24 10:19 F 03/02/24 03/09/24 10:48 10:16 Wound Center Nurse 2 1. RLE -Time 10:49 10:16 -Correct Patient Yes Yes -Correct Side, Site, Position Yes Yes -Correct Procedure Yes Yes -Procedure Performed Yes Yes -Type of Procedure Debridement Debridement -Clinical Debridement Subcutaneous Subcutaneous -Tissue Removed Subcutaneous Subcutaneous -Post Debridement (cm) - Length 1.8 1.3 -Post Debridement (cm) - Width 1.5 1 -Post Debridement (cm) - Depth 0.2 0.2 -Total Square (Post) (cm) 2.70 1.3 -Area of Debridement (cm) - Length 1.8 1.3 -Area of Debridement (cm) - Width 1.5 1 -Total Square (Area) (cm) 2.70 1.3 -Tunneling No No -Undermining/Tunneling No No -Circular Undermining No No -Wound/Ulcer Outcome Not Healed Not Healed -Ulcer Cleansing Rinsed/ Rinsed/ Irrigated with Irrigated with Saline Saline -Foul Odor after Cleansing No No -Bioengineered Tissue No No -Bleeding Controlled with Pressure Pressure -Treatment Response Procedure Procedure Tolerated Well Tolerated Well -Debridement - Subq, 1st 20sq cm Yes Yes Pain Scale: 0-10 Numeric Is Patient Pain Free? Yes Yes - Nurse 3 - General Ulcer D/C NN Start: 03/02/24 10:33 Freq: Status: Active Protocol: Activity Type Activity Date Activity User E-sign Co-sign Detail Recorded Client Recorded Date Recorded By Document 03/02/24 11:04 [place] [id number] 03/02/24 11:06 MT Document 03/02/24 11:11 [facility] [id number] 03/02/24 11:12 [facility] 03/02/24 03/02/24 11:04 11:11 Wound Care Center Nurse 3 1. RLE -Ulcer Cleansing Soap and Water Rinsed/ Irrigated with Saline -Foul Odor after Cleansing No No -Negative Pressure Wound Therapy N/A -Primary Dressing Applied Melgisorb AG Fibracol Plus 4x4,NonAdherent Contact Layer -Other Dressing ABD x 2 -Primary Dressing Covered/Secured with Dry Gauze,Dry Dry Gauze & Gauze & Roll Roll Gauze, Gauze,Secured Secured with with Tape Tape -Fibracol Plus 4x4 1 -Melgisorb AG 2 Left -Compression Wrap Constantine Wrap -Tubular Bandage Double Layer -Size of Tubigrip Used Size E -Size E ($) 2 Treatment Response Procedure Tolerated Well Pain Scale: 0-10 Numeric Is Patient Pain Free? Yes Yes WC - Visit Discharge Discharge Condition Stable Stable Ambulatory Status Ambulatory Ambulatory Transportation Private Auto Private Auto Accompanied by Medication Reconcilliation completed & No provided to patient/care provider Clinical Summary of Care Provided Yes Notes: supra-absorb x 2, 2 abd, kerlix, constantine x 2 Assessment/Plan Assessment/Plan (1) Nonhealing nonsurgical wound: CODE(S): T14.8XXA - Other injury of unspecified body region, initial encounter PLAN: Wash right leg with antibacterial soap and apply Fibracol moistened with Adaptic over top and an absorbent dressing over top with her compression stockings every day Follow-up in 1week Double layer Tubigrip to right lower leg Discussed vascular studies with patient. Patient has to follow-up with vascular about her legs they did find a popliteal cyst on her left posterior knee Cultures have been positive and patient has finished antibiotic therapy already. (2) Traumatic open wound of right lower leg: CODE(S): S81.801A - Unspecified open wound, right lower leg, initial encounter QUALIFIERS: Encounter type: subsequent encounter Qualified Code(s): S81.801D - Unspecified open wound, right lower leg, subsequent encounter (3) Dakota-Danlos syndrome: CODE(S): Q79.60 - Dakota-Danlos syndrome, unspecified (4) Ulcer of right lower extremity: CODE(S): L97.919 - Non-pressure chronic ulcer of unspecified part of right lower leg with unspecified severity QUALIFIERS: Non-pressure ulcer stage: with fat layer exposed Qualified Code(s): L97.912 - Non-pressure chronic ulcer of unspecified part of right lower leg with fat layer exposed (5) Ulcer of right lower extremity with fat layer exposed: CODE(S): L97.912 - Non-pressure chronic ulcer of unspecified part of right lower leg with fat layer exposed
--- NOTE | 2024-03-10 08:50 | WC ---
PHOTO 03/09/24 [email or web address]
[2024-03-16 10:33] VITALS: BP 148/71; PULSE 87; RESP 16; TEMP 36.9
--- NOTE | 2024-03-16 12:34 | PN.PCM_ITS ---
History of Present Illness Date of Service: 03/16/24 Chief Complaint: Follow-up right aguilar wound since October. 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 She has been treated by her family doctor who finally after 2 rounds of antibiotics and not getting anywhere decided to send her to the wound center. 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 Progress of Wound: The wound is closed and patient will be discharged from the wound center she can follow-up as needed and protected just with a gauze dressing until it gets a good skin coverage. Subjective Subjective Patient is very happy and extremely pleased with outcomes Objective Data Objective Data There is no indentation the skin is flat across healed very nicely well-appr oximated we will discharge from the wound center and follow-up as needed Vital Signs: Vital Signs Temp Pulse Resp BP O2 Del Method 98.5 F 87 16 148/71 H Room Air 03/16/24 10:33 03/16/24 10:33 03/16/24 10:33 03/16/24 10:33 03/16/24 10:33 Oxygen Delivery Method Room Air Physical Exam Const oriented x3 General Appearance: cooperative Exam Limitations: no limitations HEENT normocephalic Eyes General Eye: normal appearance of both eyes Neck General: normal visual inspection Resp normal respiratory effort Effort and Inspection: able to speak in complete sentences Cardio regular rate and regular rhythm Back/Spine Cervical Spine: cervical ROM normal Extremity General Extremity: normal exam except as noted, edema and other findings Other Details: Some varicosities superficial Skin Skin Narrative: Open wound right aguilar well-demarcated with no erythema except around the perimeter no tenderness to touch. About the size of a $0.50 piece with some positive depth Neuro oriented x3 Psych Appearance: grossly normal Speech: normal speech Thought Content: normal thought content Judgement: judgement good Debridement Note Debridement Note No debridement was completed: No debridement was completed today Post-Debridement Measurements and Additional Note: Post-Debridement Measurements/Treatment WC - Nurse 1 - General Ulcer Assessment Start: 03/02/24 10:33 Freq: Status: Active Protocol: WC.LOWEXT Activity Type Activity Date Activity User E-sign Co-sign Detail Recorded Client Recorded Date Recorded By Document 03/02/24 10:33 MT [id number] 03/02/24 10:43 MT Document 03/09/24 10:09 RB [id number] 03/09/24 10:12 RB Document 03/16/24 10:33 BMF [id number] 03/16/24 10:37 BMF 03/02/24 03/09/24 03/16/24 10:33 10:09 10:33 - Today's Visit Information Type of service Follow-up Visit Follow-up Visit Follow-up Visit (Physician/TREE PLANTER (Physician/TREE PLANTER (Physician/TREE PLANTER ) ) ) Arrival Mode Ambulatory Ambulatory Ambulatory Transfer Assistance None None Accompanied by Patient Identification Verified (Name & Yes Yes Yes ) Patient Requires Transmission-Based No No Precautions Safety Precautions Fall Prevention Vital Signs Temperature (97.8 F-99.1 F) 98.0 F 97.3 F L 98.5 F Temperature Source Temporal Temporal Temporal Pulse Rate (60-100) 103 H 99 87 Pulse Location Monitor Monitor Monitor Respiratory Rate (12-18) 18 18 16 Respiratory rate source Observation Observation Observation Oxygen Delivery Method Room Air Blood Pressure (90/60-120/80) 143/78 H 148/79 H 148/71 H Blood Pressure Mean (mm Hg) 99 102 96 Source Monitor Monitor Monitor Position Sitting Semi-Fowlers Sitting Blood Pressure Location Right Forearm Left Arm Left Arm History Since Last Visit- (Skip if this is Patient's initial visit) Have you changed medications since your No No last visit? Any new allergies or adverse reactions No No Had a fall/change in ADL's that may No No increase risk of falls Signs or symptoms of abuse and/or No No neglect since last visit Have you been in the hospital since your No No last visit? Has dressing in place as prescribed Yes Yes Yes Has compression in place as prescribed Yes Yes N/A Has offloadiing in place as prescribed Yes N/A N/A Experienced any changes in pain level or Yes No No management Left Footwear Regular Shoe Regular Shoe Right Footwear Regular Shoe Regular Shoe Pain Scale: 0-10 Numeric Is Patient Pain Free? Yes Yes Yes WC - Nurse 1 - General Ulcer Measurement Start: 03/02/24 10:33 Freq: Status: Active Protocol: Activity Type Activity Date Activity User E-sign Co-sign Detail Recorded Client Recorded Date Recorded By Document 03/02/24 10:33 MT [id number] 03/02/24 10:43 MT Document 03/09/24 10:09 RB [id number] 03/09/24 10:12 RB Document 03/16/24 10:33 BMF [id number] 03/16/24 10:37 BMF 03/02/24 03/09/24 03/16/24 10:33 10:09 10:33 Wound Center Nurse 1 1. RLE -Combined with other wound No No -Current Size (cm) - Length 1.7 1.5 0.1 -Current Size (cm) - Width 1.3 1 0.1 -Current Size (cm) - Depth 0.1 0.1 0.1 -Total Square Cm 2.21 1.5 0.01 -Photo Taken No Yes -Epithelialization Large 67-100% -Tunneling No No No -Undermining/Tunneling No No No -Circular Undermining No No No -Exudate Amt Small Medium None Present -Exudate Type Serosanguineous Serosanguineous Serosanguineous -Wound Margin Flat & Intact Distinct, Outline Attached -Granulation Amt Medium (34-66%) Medium (34-66%) -Granulation Quality Pale,Valinda Valinda,Red -Slough/Fibrin Yes -Necrosis Amt Medium (34-66%) Medium (34-66%) -Necrotic Tissue Type Adherent Slough Adherent Slough -Structure Exposed N/A -Texture (Dot-wound Skin Appearance) Assessed, Assessed Assessed, Localized Edema Scarring -Moisture (Dot-wound Skin Appearance) Assessed, Assessed Assessed Maceration -Color (Dot-wound Skin Appearance) Assessed Assessed Assessed -Temperature (Dot-wound Skin No Abnormality No Abnormality No Abnormality Appearance) (Pt Warm) (Pt Warm) (Pt Warm) -Tenderness on Palpation (Dot-wound No No No Skin Appearance) -Ulcer Cleansing Rinsed/ Wound Cleanser Rinsed/ Irrigated with Irrigated with Saline Saline -Foul Odor after Cleansing No No No -Anesthetic Used 5% Lidocaine 5% Lidocaine 5% Lidocaine Gel Gel Gel Lower Limb Edema Present Yes Yes Right Calf (cm) 35 38.5 38.6 Right Ankle (cm) 24 23.3 23.2 WHIT - Nurse 2 - General Ulcer CM Notes Start: 03/02/24 10:33 Freq: Status: Active Protocol: Activity Type Activity Date Activity User E-sign Co-sign Detail Recorded Client Recorded Date Recorded By Document 03/02/24 10:48 [facility] [id number] 03/02/24 10:53 [facility] Document 03/09/24 10:16 [facility] [id number] 03/09/24 10:19 [facility] Document 03/16/24 10:39 [facility] [id number] 03/16/24 10:41 F 03/02/24 03/09/24 03/16/24 10:48 10:16 10:39 Wound Center Nurse 2 1. RLE -Time 10:49 10:16 10:39 -Correct Patient Yes Yes -Correct Side, Site, Position Yes Yes -Correct Procedure Yes Yes -Procedure Performed Yes Yes -Type of Procedure Debridement Debridement -Clinical Debridement Subcutaneous Subcutaneous -Tissue Removed Subcutaneous Subcutaneous -Post Debridement (cm) - Length 1.8 1.3 0 -Post Debridement (cm) - Width 1.5 1 0 -Post Debridement (cm) - Depth 0.2 0.2 0 -Total Square (Post) (cm) 2.70 1.3 0 -Area of Debridement (cm) - Length 1.8 1.3 0 -Area of Debridement (cm) - Width 1.5 1 0 -Total Square (Area) (cm) 2.70 1.3 0 -Tunneling No No -Undermining/Tunneling No No -Circular Undermining No No -Wound/Ulcer Outcome Not Healed Not Healed Healed- Epithelialized -Ulcer Cleansing Rinsed/ Rinsed/ Irrigated with Irrigated with Saline Saline -Foul Odor after Cleansing No No -Bioengineered Tissue No No -Bleeding Controlled with Pressure Pressure NA -Treatment Response Procedure Procedure Tolerated Well Tolerated Well -Debridement - Subq, 1st 20sq cm Yes Yes Pain Scale: 0-10 Numeric Is Patient Pain Free? Yes Yes Yes WHIT - Nurse 3 - General Ulcer D/C NN Start: 03/02/24 10:33 Freq: Status: Active Protocol: Activity Type Activity Date Activity User E-sign Co-sign Detail Recorded Client Recorded Date Recorded By Document 03/02/24 11:04 MT [id number] 03/02/24 11:06 ND Document 03/02/24 11:11 [facility] [id number] 03/02/24 11:12 BM Document 03/09/24 10:35 RB [id number] 03/09/24 10:36 RB Document 03/16/24 10:53 DL [id number] 03/16/24 10:58 DL 03/02/24 03/02/24 03/09/24 11:04 11:11 10:35 Wound Care Center Nurse 3 1. RLE -Ulcer Cleansing Soap and Water Rinsed/ Rinsed/ Irrigated with Irrigated with Saline Saline -Foul Odor after Cleansing No No -Negative Pressure Wound Therapy N/A -Primary Dressing Applied Melgisorb AG Fibracol Plus 4x4,NonAdherent Contact Layer -Primary Dressing Applied Fibracol Plus 4x4 -Other Dressing ABD x 2 -Primary Dressing Covered/Secured with Dry Gauze,Dry Dry Gauze & Dry Gauze,Dry Gauze & Roll Roll Gauze, Gauze & Roll Gauze,Secured Secured with Gauze,Secured with Tape Tape with Tape -Fibracol Plus 4x4 1 1 -Melgisorb AG 2 -Silicone Border Foam 4x4 -Wound Comment(s) Right -Tubular Bandage Double Layer -Size of Tubigrip Used Size E -Size E ($) 2 Left -Compression Wrap Constantine Wrap -Tubular Bandage Double Layer Double Layer -Size of Tubigrip Used Size E Size E -Size E ($) 2 2 Treatment Response Procedure Procedure Tolerated Well Tolerated Well Pain Scale: 0-10 Numeric Is Patient Pain Free? Yes Yes Yes WC - Visit Discharge Discharge Condition Stable Stable Stable Ambulatory Status Ambulatory Ambulatory Ambulatory Transportation Private Auto Private Auto Private Auto Accompanied by Medication Reconcilliation completed & No No provided to patient/care provider Clinical Summary of Care Provided Yes Yes Notes: supra-absorb x 2, 2 abd, kerlix, constantine x 2 03/16/24 10:53 Wound Care Center Nurse 3 1. RLE -Ulcer Cleansing -Foul Odor after Cleansing -Negative Pressure Wound Therapy -Primary Dressing Applied -Primary Dressing Applied Silicone Border Foam 4x4 -Other Dressing -Primary Dressing Covered/Secured with -Fibracol Plus 4x4 -Melgisorb AG -Silicone Border Foam 4x4 1 -Wound Comment(s) Healed, pad and protect. Discharged. Right -Tubular Bandage Double Layer -Size of Tubigrip Used Size E -Size E ($) 2 Left -Compression Wrap -Tubular Bandage -Size of Tubigrip Used -Size E ($) Treatment Response Pain Scale: 0-10 Numeric Is Patient Pain Free? Yes WC - Visit Discharge Discharge Condition Ambulatory Status Transportation Accompanied by Medication Reconcilliation completed & provided to patient/care provider Clinical Summary of Care Provided Notes: Assessment/Plan Assessment/Plan (1) Nonhealing nonsurgical wound: CODE(S): T14.8XXA - Other injury of unspecified body region, initial encounter PLAN: Discharge from the wound center follow-up as needed May cover the area with a dry dressing she is to continue wearing the Tubigrip And compression stockings. (2) Traumatic open wound of right lower leg: CODE(S): S81.801A - Unspecified open wound, right lower leg, initial encounter QUALIFIERS: Encounter type: subsequent encounter Qualified Code(s): S81.801D - Unspecified open wound, right lower leg, subsequent encounter (3) Dakota-Danlos syndrome: CODE(S): Q79.60 - Dakota-Danlos syndrome, unspecified (4) Ulcer of right lower extremity: CODE(S): L97.919 - Non-pressure chronic ulcer of unspecified part of right lower leg with unspecified severity QUALIFIERS: Non-pressure ulcer stage: with fat layer exposed Qualified Code(s): L97.912 - Non-pressure chronic ulcer of unspecified part of right lower leg with fat layer exposed (5) Ulcer of right lower extremity with fat layer exposed: CODE(S): L97.912 - Non-pressure chronic ulcer of unspecified part of right lower leg with fat layer exposed
== END 2024-03-23 13:19 | disposition home or self-care (01) ==
LOC: WC 10:15
PROVIDERS: PCP Family Medicine; Referring Provider Family Medicine; Visit Provider Nurse Practitioner
DX: L97.812 Non-pressure chronic ulcer of other part of right lower leg with fat layer exposed (principal); S80.11XS Contusion of right lower leg, sequela; Q79.60 Ehlers-Danlos syndrome, unspecified; W20.8XXS Other cause of strike by thrown, projected or falling object, sequela; F17.210 Nicotine dependence, cigarettes, uncomplicated; Z79.899 Other long term (current) drug therapy
CPT/HCPCS: 11042; 99212; 99213; G0463